=== PATIENT | female | born 1970 | race Caucasian/White ===

== ENCOUNTER 2017-01-20 12:16 | Inpatient (IN) | payer MEDICARE, MEDICAID ==
[~2017-01-20] VITALS: Ht 160 cm; Wt 120.8 kg
--- NOTE | ~2017-01-20 | DS ---
ADMIT: 01/20/2017 RM/LOC: 511 [facility] MR#: [id number] [facility]#: [id number] [address] [facility] [address] [place], [place] [address] ALBA HENSLEY [address] [place] [address] General Discharge Summary SEX: F AGE: 46 : 1970 ADMISSION DATE: 01/20/2017 DISCHARGE DATE: 01/23/2017 SERVICE: Neurosurgery. REASON FOR ADMISSION: 1. Lumbar spinal stenosis. 2. Lumbar disk herniation. 3. Low back pain. PROCEDURE: L5-S1 laminectomy and transforaminal interbody fusion. HOSPITAL COURSE: Ms. Hensley tolerated her procedure well. Postoperatively, she was taken to the Med-Surg floor for monitoring and care. Postoperative day #1, she was awake and alert, she was afebrile, her vital signs were stable. She was moving all extremities x4 with 5/5 strength. Her incision was clean, dry, and intact. She did work with Physical Therapy and Occupational Therapy and tolerated this quite well. Postoperative day #2, her vital signs were stable. She was awake and alert. She was moving all extremities x4 with 5/5 strength. Her JOSE drain had a large amount of drainage, therefore, it was continued. She continued to work with Physical Therapy and Occupational Therapy and tolerated this quite well. Postoperative day #3, she was awake and alert, she was afebrile, and her vital signs were stable. She was moving all extremities x4 with 5/5 strength. Her incision was clean, dry, and intact. Her JOSE drain had decreased drainage, therefore, it was discontinued without difficulty. She was ambulating, urinating, and defecating per her norm and was requesting discharge home. DISCHARGE CONDITION: Good. MEDICATIONS: 1. Colace 100 mg p.o. b.i.d. 2. Bacitracin to incision q.p.m. x14 days. 3. Percocet 5/325 one to two p.o. q.4 hours p.r.n. 4. Tylenol 650 mg p.o. q.4 hours p.r.n. 5. Valium 5 mg one to two p.o. q.8 hours p.r.n. 6. Gabapentin 600 mg t.i.d. 7. Percocet 10 mg b.i.d. p.r.n. 8. Fentanyl patch 25 mcg every 72 hours. 9. Atorvastatin 40 mg daily. 10.Lisinopril/hydrochlorothiazide 20/12.5, two tablets daily. 11.Clopidogrel 75 mg daily. She can restart this on 01/25/2017. 12.Magnesium oxide 400 mg b.i.d. 13.Cetirizine 10 mg daily. 14.Multivitamin daily. 15.Calcium 600 with vitamin D 800 b.i.d. 16.Fish oil plus [place]-3 b.i.d. 17.Aspirin 81 mg daily. 18.Famotidine 20 mg b.i.d. ADMIT: 01/20/2017 RM/LOC: 511 [facility] MR#: [id number] [address] [address] ALBA HENSLEY [address] [place] [id number] General Discharge Summary SEX: F AGE: 46 : 1970 DISCHARGE INSTRUCTIONS: Per Dr. Delgadillo: She can have a cardiac diet. She may shower, she should not take any tub baths, she should pat her incision dry. She should have her TLSO on at all times when she is out of bed. She should not lift anything greater than 15 pounds. She should not take any NSAIDs. She should not drive until she is seen in clinic for followup. She should limit repetitive bending and twisting of her surgical site. She will call with any questions or concerns including neurological worsening, signs or symptoms of infection, or any other issues. FOLLOWUP: She will follow up with Jackie Ventura APRN, in clinic in two weeks. DISPOSITION: She was discharged home. Total [id number] time for the discharge planning and care coordination was 30 minutes. Jackie Ventura APRN / Nigel Delgadillo MD / saige JOB #: [id number] CC: Nigel Delgadillo MD, Attending Physician Lubna Daniel APRN, Family Physician
[~2017-01-20 12:16] MED LIST: ASPIR 8181 MG PO; CLOPIDOGREL75 MG PO; COLACE-DPS100 MG PO; DAILY MULTIPLE1 EAC1 PO; GABAPENTIN600 MG PO; LIPITOR80 MG PO; MAG-OX400 MG PO; MS CONTIN DPS15 MG PO; OMEGA-3 DPS1000 MG PO; OXYBUTYNIN CHLO10 MG PO; PEPCID DPS20 MG PO; PERCOCET 5 DPS1 TAB PO; TYLENOL DPS325 MG PO; VALIUM-DPS5 MG PO; VITAMIN D35000 UNIT PO; ZESTORETIC 20/11 TAB PO; ZYRTEC DPS10 MG PO
--- NOTE | 2017-01-23 07:36 | OR ---
ADMIT: 01/20/2017 RM/LOC: 511 [facility] MR#: [id number] [address] [address] ALBA FLORIAN [address] [place] [address] Operative/Delivery Room Report SEX: F AGE: 46 : 1970 SURGERY DATE: 01/20/2017 SURGEON: Nigel Delgadillo MD SERVICE CONTROL OPERATOR: Jackie Ventura APRN. PREOPERATIVE DIAGNOSIS: Severe stenosis with recurrent herniated nucleus pulposus and severe narrowing, lumbar 5-sacral 1. POSTOPERATIVE DIAGNOSIS: Severe stenosis with recurrent herniated nucleus pulposus and severe narrowing, lumbar 5-sacral 1, with findings of heavily calcified disk material with ossification through the area with severe compression. PROCEDURE: 1. Wide laminectomy and facetectomy, lumbar 5-sacral 1, as wide as necessary through the scar tissue for decompression of the thecal sac. 2. Diskectomy for significant decompression with pedicle subtraction osteotomy kit use for in-fracture of much of the bony ossified disk that was scarred down to the dura leaving some remaining parts that was heavily scarred in the dura at this site on the right of the prior diskectomy. 3. Transforaminal lumbar interbody arthrodesis, L5-S1, with posterolateral arthrodesis, L5-S1. 4. Smilax of autograft through same incision with morcellation and admixture with allograft with reimplantation in the posterolateral gutters as well as in the inner space. 5. Placement of Spine Wave expandable titanium cage in the intervertebral space, L5-S1. 6. Posterior instrumentation utilizing [employer] pedicle screws and rods at lumbar 5-sacral 1. 7. Intraoperative use of fluoroscopy with physician interpretation of film. 8. Intraoperative neuromonitoring with no change from baseline and no sign of breach rhythm on stimulation. This case was significantly more difficult than usual secondary to the patient's obesity necessitating use of longer instruments during the case as well as the severe scar tissue present from the prior diskectomy with heavy scarring in both the anterior and posterior thecal sac, especially on the right, necessitating more time and more difficult technique for decompression. DESCRIPTION OF PROCEDURE: After gaining informed consent, the patient was taken to the operative theater, placed under general endotracheal anesthesia in supine position and turned prone on a Avelino table with all pressure points purposely padded prior to performing the procedure. She was prepped and draped in usual sterile fashion. A time-out was utilized to ascertain the correct site and side of surgery as well as other pertinent patient historical information. Counts were obtained at the beginning and the end of the case with no change betwixt the two. Antibiotics were given within 1 hour of ADMIT: 01/20/2017 RM/LOC: 511 [facility] MR#: [id number] [address] [address] ALBA FLORIAN [address] [place] [address] Operative/Delivery Room Report SEX: F AGE: 46 : 1970 incision. The fluoroscope was brought in the field and the prior incision was opened. This was widened out a bit and taken down through the significant amount of adipose tissue to the scarred down thoracodorsal fascia. This was cautiously dissected free coming down to the spinous processes and very cautiously performing subperiosteal dissection, L5-S1, utilizing fluoroscopic guidance. Self-retaining retractors were placed. Various curettes, rongeurs, and a high-speed drill were used to resect the spinous process and lamina at L5-S1 resecting this out widely even through the scar tissue on the right, resecting the facet as completely as possible to decompress the thecal sac. This was heavily scarred down and severely compressive, the scarring mostly on the right, severe compression bilaterally. Eventually, the disk was visualized on the left at L5-S1. The thecal sac did not appear to be harmed, and I was able to sound both anterior as well as posterior to the thecal sac cephalad and caudally. The thecal sac was able to be freed up from what turned out to be a very heavily calcified prior disk herniation with significant scarring of the thecal sac to this. With the exception of some of the lateral recess area on the right, I was able to anteriorly detach the thecal sac without sign of fluid leak from this osteophyte. At this point, I attempted to incise and resect disk, although there really was not much disk left and this was very heavily calcified posteriorly. Pedicle subtraction osteotomy set was brought into the field and as much of the posterior osteophyte as could safely be resected was in- fractured into the disk space resecting that area. This was done for anterior decompression as the reason for resection of the disk and this was above and beyond what would normally have to be done simply for arthrodesis. At this point, I did turn to attempting to scrape free the endplates to provide surface area for arthrodesis. The thecal sac was very widely decompressed both posteriorly and anteriorly with the exception of the limited area in the anterolateral aspect on the right with severe scarring that was not amenable to resection. Once this was completed, attention was turned to instrumentation. Fluoroscope was brought into the field, and utilizing standard landmarks, the posterior aspect of the pedicle was decorticated, and then a pedicle finder was passed through the pedicle into the vertebral body and sounded. This was placed and this was passed in a bicortical manner without sign of bleeding at the sacrum. Screws were then brought into the field and placed with no sign of complication and no breach rhythm on stimulation. CT scan was attempted, but the [facility] was unable to obtain CT images, and as such, AP and lateral fluoroscopy was utilized, which revealed likely acceptable placement of the screws. At this point, attention was then turned to the diskectomy site with very cautious protection of the thecal sac. An 8-10 mm expandable titanium cage was placed after packing the disk spaces full of bone as was possible. Further bone was then packed in after expanding the cage. Once this was completed, I was able to visualize all of the metal pieces of the ADMIT: 01/20/2017 RM/LOC: 511 [facility] MR#: [id number] [address] [address] ALBA FLORIAN [address] [place] [address] Operative/Delivery Room Report SEX: F AGE: 46 : 1970 cage in comparison to the in-fractured portion of bone and this appeared to be in no way compressive of the thecal sac, nor did it appear to be posteriorly placed. I made sure that there was no bone grafting material within the canal at this point. I was able to see everything with the exception of the far lateral part that was very scarred down. At this point, attention was turned to placing posterior instrumentation locking everything to appropriate settings and then closing. JOSE drain was day-lighted out. Pristine hemostasis was obtained. The thoracodorsal fascia and scar tissue was closed with simple interrupted 0 Vicryl. Simple, inverted, and interrupted 2-0 Vicryl was used in the hypodermic tissue with subcuticular 3-0 Stratafix on the skin and Steri-Strips over that. Ms. Ventura assisted with suction, retraction, and closure at the end of the case. COMPLICATIONS: None. ESTIMATED BLOOD LOSS: Charted. SPECIMEN: Disk. DISPOSITION: Extubated and taken to postanesthesia care unit. Nigel Delgadillo MD/ saige JOB #: [id number] CC: Nigel Delgadillo, Attending Physician Lubna Daniel, Family Physician
[2017-01-24] MEDS ORDERED: BACTROBAN OINT.22 GM TP (06:42)
[2017-01-24] MEDS ORDERED: CALCIUM 600 +1 EA12 PO (06:46)
[2017-01-24] MEDS ORDERED: DURAGESIC DPS25 MCG TD (06:46)
== END 2017-01-23 12:30 | disposition home or self-care (01) | DRG 460 ==
LOC: WOR 12:16 → 5MS 12:16
PROVIDERS: ADMIT Neurological Surgery
PROC: 0SB40ZZ Excision of Lumbosacral Disc, Open Approach (ICD-10-PCS; principal; 2017-01-20)
PROC: 0SG30A1 (ICD-10-PCS; principal; 2017-01-20)
DX: M51.26 Other intervertebral disc displacement, lumbar region (principal); M50.00 Cervical disc disorder with myelopathy, unspecified cervical region; I10 Essential (primary) hypertension; Z68.42 Body mass index [BMI] 45.0-49.9, adult; M51.27 Other intervertebral disc displacement, lumbosacral region; E66.9 Obesity, unspecified; M48.07 Spinal stenosis, lumbosacral region; M54.12 Radiculopathy, cervical region; M54.17 Radiculopathy, lumbosacral region; M46.1 Sacroiliitis, not elsewhere classified; F17.210 Nicotine dependence, cigarettes, uncomplicated; I25.10 Atherosclerotic heart disease of native coronary artery without angina pectoris; M79.7 Fibromyalgia; Z79.82 Long term (current) use of aspirin; Z79.02 Long term (current) use of antithrombotics/antiplatelets; I25.2 Old myocardial infarction; Z95.5 Presence of coronary angioplasty implant and graft; Z98.1 Arthrodesis status